=== PATIENT | female | born 1995 | race Hispanic/Latino ===

== ENCOUNTER 2019-03-15 19:28 | Emergency (ER) | payer OTHER, SELFPAY ==
[2019-03-15 19:35] VITALS: BP 129/80; PULSE 80; RESP 20; TEMP 36.4; O2SAT 98
--- NOTE | 2019-03-15 20:40 | ED.ABDPAIN ---
HPI - Abdominal Pain <UGO Fonseca - Last Filed: 03/15/19 21:46> General Chief Complaint: Abdominal Pain Stated Complaint: BACK PAIN BY THE KIDNEYS Time Seen by Provider: 03/15/19 20:01 Source: patient Mode of arrival: ambulatory Limitations: no limitations History of Present Illness HPI narrative: This is a 24-year-old female, previous smoker, presents to ED with bilateral low back pain which radiates to bilateral lower abdomen. Patient reports her urine smells like sweet tony but denies other urinary symptoms such as frequency, urgency, dysuria. Patient denies fever, chills, nausea, vomiting. 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 Patient was diagnosed with UTI this past November or December and treated with incomplete antibiotic medication. Patient also had similar low back discomfort in the past after driving a long distance when she was not well hydrated. Patient denies history of kidney stone. Patient reports pain increases with sitting down. Last LMP was 02/28/19. Review of Systems <UGO Fonseca - Last Filed: 03/15/19 21:46> Review of Systems Narrative: General: Denies fever, chills, fatigue, malaise, sweats. HEENT: Denies sinus pain, ear pain, sore throat, difficulty swallowing, dizziness. Respiratory: Denies dyspnea, cough, wheezing, hemoptysis, sputum. Cardiovascular: Denies chest pain, palpitations, orthopnea, edema. Gastrointestinal: Denies nausea, vomiting, abdominal pain, diarrhea, constipation, melena. : Denies dysuria, frequency, incontinence, hematuria, urinary retention. Musculoskeletal: Denies weakness, joint pain or bony pain. Bilateral low back pain radiates to bilateral sides. Skin: Denies rash, skin lesions, or other. Neurologic: Denies weakness, headache, numbness, change in speech, confusion, seizures, incoordination. Psychiatric: No concerning psychosocial issues. 12-point review of systems is negative except for those stated above. PFSH <UGO Fonseca - Last Filed: 03/15/19 21:46> Social History Smoking Status: Never smoker Social History (Updated 03/15/19 @ 20:46 by UGO Fonseca) Smoking Status: Former smoker Exam <Sanket Dorantes, [facility] - Last Filed: 03/15/19 21:46> Narrative Exam Narrative: GEN: Alert, oriented x 3, well appearing and nourished, and in no acute distress. Head: Normal cephalic, atraumatic. No scalp or temporal tenderness, palpable mass or rash. EYES: Pupils are equal, round, and reactive to light and accommodation. Extraocular muscles are intact bilaterally. There is no subconjunctival hemorrhage, exudate and sclera non-icteric. ENT: Bilateral auditory canals and tympanic membranes clear. Hearing grossly intact. Nose without bleeding, purulent discharge or deviation. Facial sinuses nontender to palpate. Mucous membrane moist, no mucosal lesion. Throat without erythema, tonsillar hypertrophy or exudate. Uvula in midline, airway patent. Neck: Trachea in midline. No JVD, non-tender without lymphadenopathy. No masses or thyroid megaly. Supple, non-tender and no meningeal signs. CARDIAC: Normal regular rate and rhythm without murmurs, gallops, or rubs. No chest wall tenderness. No peripheral edema, cyanosis or pallor. Capillary refill is less than 2 seconds. RESPIRATORY: Lungs are cleat to auscultate bilaterally. No cough, wheezes, rales, or rhonchi. No stridor, respiratory distress, increase work of breathing, or accessary muscle used. ABD: Abdomen soft, nontender and non-distended. No guarding or rebound tenderness to palpate, no peritoneal signs. Bowel sounds are normal in all 4 quadrants. There is no palpable masses or organomegaly. EXT: Full painless ROM of all extremities with no loss of sensation, strength, effusion or edema. SKIN: Warm, dry, normal color for patient. No erythema, lesions or rash over visible areas. BACK: Nontender without deformity or crepitance. No flank tenderness. No paraspinal tenderness by palpation. Increased pain with extension of her back. NEUROLOGICAL: Alert and oriented to place, time and person. Sensation and motor function intact bilaterally. No facial droops, dysphasia. PSYCHIATRIC: Good judgement and reason, without hallucinations, abnormal affect or abnormal behaviors during the examination. Patient is not suicidal. Initial Vital Signs Initial Vital Signs: Vital Signs Temperature 97.5 F L 03/15/19 19:35 Pulse Rate 80 03/15/19 19:35 Respiratory Rate 20 03/15/19 19:35 Blood Pressure 129/80 03/15/19 19:35 Pulse Oximetry 98 03/15/19 19:35 <Elizabeth Markham DO - Last Filed: 03/16/19 05:34> Initial Vital Signs Initial Vital Signs: Vital Signs Temperature 97.5 F L 03/15/19 19:35 Pulse Rate 80 03/15/19 19:35 Respiratory Rate 20 03/15/19 19:35 Blood Pressure 129/80 03/15/19 19:35 Pulse Oximetry 98 03/15/19 19:35 Course <UGO Fonseca - Last Filed: 03/15/19 21:46> Orders Ordered: Discontinued Medications Acetaminophen (Tylenol) 650 mg PO NOW ONE Stop: 03/15/19 20:35 Last Admin: 03/15/19 21:38 Dose: 650 mg Documented by: DESIREE Ibuprofen (Advil) 400 mg PO NOW ONE Stop: 03/15/19 20:35 Last Admin: 03/15/19 21:38 Dose: 400 mg Documented by: DESIREE Ibuprofen (Advil) 400 mg PO NOW ONE Stop: 03/15/19 21:34 Last Admin: 03/15/19 21:39 Dose: Not Given Documented by: DESIREE Vital Signs Vital signs: Vital Signs - 8 hr 03/15/19 21:50 Pulse Rate 77 Respiratory Rate 16 Blood Pressure 122/84 Pulse Oximetry 99 <Elizabeth Markham DO - Last Filed: 03/16/19 05:34> Orders Ordered: Discontinued Medications Acetaminophen (Tylenol) 650 mg PO NOW ONE Stop: 03/15/19 20:35 Last Admin: 03/15/19 21:38 Dose: 650 mg Documented by: DESIREE Ibuprofen (Advil) 400 mg PO NOW ONE Stop: 03/15/19 20:35 Last Admin: 03/15/19 21:38 Dose: 400 mg Documented by: DESIREE Ibuprofen (Advil) 400 mg PO NOW ONE Stop: 03/15/19 21:34 Last Admin: 03/15/19 21:39 Dose: Not Given Documented by: DESIREE Vital Signs Vital signs: Vital Signs - 8 hr 03/15/19 21:50 Pulse Rate 77 Respiratory Rate 16 Blood Pressure 122/84 Pulse Oximetry 99 MDM - Abdominal Pain <UGO Fonseca - Last Filed: 03/15/19 21:46> Differential Diagnosis Differential diagnosis: Likely abdominal pain, calculus of kidney and other (UTI, ectopic , ovarian cyst) Medical Records Attestation: I reviewed the patient's medical records. Lab Data Attestation: I reviewed the patient's lab results. Labs: Lab Results 03/15/19 Range/Units 19:55 Urine RBC None seen (0-5/HPF) Urine WBC 0-1/hpf (0-5/HPF) Urine Bacteria Few (2-10) H (None) Ur Culture Indicated? Culture not indicate Point of care testing: Point of Care Testing Test Results Negative Urine Dip Bedside Urine Glucose Negative Bedside Urine Bilirubin - Negative Bedside Urine Ketone - Negative Urine Specific [place] 1.015 Bedside Urine Occult Blood +/- Bedside Urine pH 6.0 Bedside Urine Protein - Negative Bedside Urine Urobilinogen - Negative Bedside Urine Nitrite - Negative Bedside Urine Leukocytes - Negative Esterase MDM Narrative Medical decision making narrative: This is nontoxic appearing 24-year-old female presents to ED with low back pain radiating to right side. Patient denies fever, chills, nausea or vomiting. She did have 1 episode of vomiting this morning but after eating a cheese which she usually does not do well after eating cheese. Patient reports sitting down aggravates. Urine test showed very scant amount of blood per POC test. Micro test was ordered no RBC was seen at this time with few urine bacteria. Although it was not indicated for urine culture but lab was contacted to culture the urine sample. Patient's urine test was negative. Patient reports she was diagnosed with UTI in the past November or December but was not treated with full course of antibiotic medications at that time and she stopped taking the medication. She had in the past once similar symptoms which had resolved on its own. Patient was advised to hydrate adequately, monitor for return precautions for kidney stone, kidney infection, appendicitis, ovarian pain or torsion and verbalized understanding and agrees with treatment plan. Patient was medicated with Tylenol and Motrin while in ED since the patient declined IM injection of Toradol. Patient was given phone number for [facility] to arrange a PCP in town. <Elizabeth Markham DO - Last Filed: 03/16/19 05:34> Lab Data Labs: Lab Results 03/15/19 Range/Units 19:55 Urine RBC None seen (0-5/HPF) Urine WBC 0-1/hpf (0-5/HPF) Urine Bacteria Few (2-10) H (None) Ur Culture Indicated? Culture not indicate Point of care testing: Point of Care Testing Test Results Negative Urine Dip Bedside Urine Glucose Negative Bedside Urine Bilirubin - Negative Bedside Urine Ketone - Negative Urine Specific [place] 1.015 Bedside Urine Occult Blood +/- Bedside Urine pH 6.0 Bedside Urine Protein - Negative Bedside Urine Urobilinogen - Negative Bedside Urine Nitrite - Negative Bedside Urine Leukocytes - Negative Esterase Discharge Plan Departure Patient Disposition: Home Clinical Impression: Flank pain Discharge Date/Time: 03/15/19 21:52 Instructions: DI for Flank Pain Activity Restrictions/Additional Instructions: You have been diagnosed with [bilateral flank pain and side pain. Your urine test does not appears to be having an acute infection. Your urine is being cultured at this time and you will be receiving a call from ED if you need a treatment with antibiotic medication.]. What to do: *Take your medications as directed. Please take [id number] Tylenol 2 extra strength up to 4 times a day and/or Motrin 6-800 mg 3 times a day with food as needed for discomfort. *Follow up with your primary care provider in 2-3 days, call for an appointment. Let them know you were seen in the ED and that we asked you to be seen in follow up. *Return to ED if you have any new, worsening, or concerning symptoms, such as [increasing flank pain, unable to tolerate fluids, fever and chills, chest pain, breathing difficulty, feeling faint, severe abdominal pain]. Referrals: [facility] [Outside]
[2019-03-15 20:42] LABS: RBC Urine None Seen (0-5/HPF)
[2019-03-15 20:55] LABS: Bacteria Urine Few (2-10); WBC Urine 0-1/HPF (0-5/HPF)
[2019-03-15] MEDS: ACETAMINOPHEN 325 MG TABLET 650 MG PO (21:38)
[2019-03-15] MEDS: IBUPROFEN 400 MG TABLET PO (21:38)
[2019-03-15 21:50] VITALS: BP 122/84; PULSE 77; RESP 16; O2SAT 99
== END 2019-03-15 21:52 | disposition home or self-care (01) ==
PROVIDERS: Emergency Provider Nurse Practitioner Family
DX: R10.9 Unspecified abdominal pain (principal)
CPT/HCPCS: 81003; 81015; 81025; 87077; 87086; 87186; 99282; 99283